=== PATIENT | female | born 1980 | race Native Hawaiian/Other Pacific Islander ===

== ENCOUNTER 2018-03-17 20:35 | Emergency (ER) | payer OTHER ==
[~2018-03-17] VITALS: Ht 160 cm; Wt 45.4 kg
[2018-03-17 22:01] VITALS: BP 96/54; TEMP 100.1
== END 2018-03-17 22:02 | disposition home or self-care (01) ==
LOC: ED 20:35
DX: N30.81 Other cystitis with hematuria (principal)
CPT/HCPCS: 81000; 81025; 87077; 87086; 87088; 87186; 99283

== ENCOUNTER 2018-03-18 19:04 | Emergency (ER) | payer OTHER ==
[~2018-03-18] VITALS: Ht 160 cm; Wt 45.4 kg
[2018-03-18 19:31] VITALS: BP 115/57; TEMP 99.6
== END 2018-03-18 21:23 | disposition home or self-care (01) ==
LOC: ED 19:04
DX: N39.0 Urinary tract infection, site not specified (principal)
CPT/HCPCS: 99281

== ENCOUNTER 2018-04-21 18:55 | Emergency (ER) | payer OTHER ==
[~2018-04-21] VITALS: Ht 160 cm; Wt 45.4 kg
[2018-04-21 20:39] VITALS: BP 120/78; TEMP 98
== END 2018-04-21 20:39 | disposition home or self-care (01) ==
LOC: ED 18:55
DX: R51 Headache (principal); R11.2 Nausea with vomiting, unspecified; R42 Dizziness and giddiness
CPT/HCPCS: 96372; 99282; J1885

== ENCOUNTER 2018-07-21 10:07 | Emergency (ER) | payer OTHER ==
[~2018-07-21] VITALS: Ht 160 cm; Wt 45.4 kg
[2018-07-21 10:15] VITALS: BP 104/65; TEMP 99.1
== END 2018-07-21 11:30 | disposition home or self-care (01) ==
LOC: ED 10:07
DX: R10.11 Right upper quadrant pain (principal)
CPT/HCPCS: 81000; 99283

== ENCOUNTER 2018-10-13 12:07 | Emergency (ER) | payer OTHER ==
[~2018-10-13] VITALS: Ht 160 cm; Wt 45.4 kg
[2018-10-13 13:05] LABS: PLATELET COUNT 248 K/uL (152-353); POTASSIUM 3.4 mmol/L (3.6-5.2)
[2018-10-13 14:32] VITALS: BP 128/80; TEMP 98
== END 2018-10-13 14:32 | disposition home or self-care (01) ==
LOC: ED 12:07
PROVIDERS: Emergency Medicine
DX: N89.8 Other specified noninflammatory disorders of vagina (principal)
CPT/HCPCS: 80053; 81000; 81025; 85027; 87490; 87590; 96372; 99284; J0696